=== PATIENT | female | born 1945 | race Two or more races ===

== ENCOUNTER 2025-06-05 07:43 | Day surgery (SDC) | payer OTHER, MEDICAID ==
[~2025-06-05] VITALS: Ht 165.1 cm; Wt 83.0 kg
[2025-06-05] VITALS (10 sets, daily range): BP systolic 123–172; BP diastolic 61–96; PULSE 58–81; RESP 14–18; O2SAT 96–99
[~2025-06-05 07:43] MED LIST: AMLO1TAB22 PO; ASPI-543 PO; ATOR40TA52 PO; AZEL0.054 EACHEYE; DIVA250T12 PO; HYDR-4069 PO; HYDR-4798 PO; ISOS10TA5 PO; LISI40TA16 PO; METO-158 PO; NITR0.4O2 SL; OMEP20TA PO; POM PO
[2025-06-05] MEDS: IODIXANOL 320MG/ML 100ML BTL IV ONE (09:10)
[2025-06-05] MEDS: VERAPAMIL 2.5MG/ML INJ 2ML VIAL IV ONE (09:11)
[2025-06-05] MEDS: HEPARIN SODIUM (PORCINE) 5000 UNITS/ML 1ML VIAL ONE (09:11)
[2025-06-05] MEDS: LIDOCAINE 2%HCL (LOCAL ANESTH.) INJ 20ML MDV ONE (09:12)
[2025-06-05] MEDS: SODIUM CHL 0.9% 0 ML ONE (09:12)
[2025-06-05] MEDS: ANGIOMAX 250 MG VIAL IV ONE (09:13)
[2025-06-05] MEDS: MIDAZOLAM HCL 2MG/2ML 2ml VIAL (1mg/ml) ONE (09:13)
[2025-06-05] MEDS: fentaNYL CITRATE 100 MCG/2 ML VL ONE (09:13)
--- NOTE | 2025-06-05 10:35 | DVHOP2 ---
Operative Report Procedures performed: Bilateral coronary angiography Moderate sedation Ultrasound-guided access (right femoral artery) Diagnosis: Nonobstructive coronary artery disease Patent right iliac artery stent Known aortic stenosis (TTE/DANIEL finding) Cardiac suggestion for management: Outpatient referral for management of aortic stenosis Findings: Left main: Left main was coming off the left sinus of Valsalva. There was no angiographic evidence of disease in left main. LAD: LAD was coming off the left main. First diagonal was small-sized vessel. Second diagonal was medium-sized vessel. There was a focal 40% lesion in mid LAD. Other portions of LAD and branches did not reveal any angiographic evidence of disease. LCX: LCX was coming off the left main. It was codominant and provided LPLB. OM1 was a small-caliber vessel. OM2 was a large caliber vessel. Left posterolateral branch was a medium-sized vessel. LCX throughout its course and branches did not reveal any angiographic evidence of disease. RCA: RCA was coming off the right sinus of Valsalva. It was a medium-sized vessel and also provided RPDA. It was co-dominant. RCA throughout its course and branches did not reveal any angiographic evidence of disease. It is of note that there was a patent stent (with no in-stent stenosis) in right iliac artery Presentation: Patient is a 79-year-old female who came to the office with dyspnea on exertion. 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 Nuclear stress test of January 2025 revealed some fixed defects. Ejection fraction was 60%. Echocardiogram of November 2024 revealed mild concentric left ventricular hypertrophy, ejection fraction more than 70%, [id number] aortic stenosis with peak/mean pressure gradient of 60/35 mm Hg across aortic valve and calculated aortic valve area of 1.0 cm. There was [id number]-[id number] MR, there was mild TR and right ventricular systolic pressure of 35 mm Hg. Transesophageal echocardiogram which was performed in March 2025 ([facility] [place] by Dr. Del Valle) revealed ejection fraction of 70%, [id number] MR, moderate aortic regurgitation, severe aortic stenosis and calculated aortic valve area of 0.6 cm. Patient was sent for cardiac catheterization on preparation for referral for aortic valve replacement. Procedure: After obtaining informed consent, the patient was brought to the labor/excavator. She was prepped and draped in sterile fashion. 1 mg of Versed and 25 mcg of fentanyl were used for moderate sedation. At 1st we attempted to get the right radial artery for access. We did use Seldinger technique and attempted to put a wire. The wire did not go up enough and we presumed that there is right radial artery problem and decided not to proceed to accessed the right radial artery. Using Seldinger technique, under fluoroscopy guidance and the use of a micropuncture, the right femoral artery was accessed. After angiographically proving a good access point, the micropuncture sheath was exchanged over a wire to a 6 [place] femoral sheath. We did recognize a patent stent in right inguinal artery. A 6 [place] JR4 diagnostic catheter was used to perform right coronary angiography. A 6 [place] JL4 diagnostic catheter was used to perform left coronary angiography. There was no indication for any transcatheter revascularization (on coronaries). There was no dissection/hematoma/perforation. Patient tolerated the procedure with no c omplication. Right femoral artery access site was managed by deploying an Angio-Seal device. Total bleeding was less than 15 mL. Fluoroscopy time: 3.6 minutes contrast: 42 mL of DUKE Bearden MD Jun 05, 2025 10:34
== END 2025-06-05 13:37 | disposition home or self-care (01) ==
LOC: CATH 07:43
PROVIDERS: ATTEND Internal Medicine Cardiovascular Disease
DX: R06.09 Other forms of dyspnea (principal); R94.39 Abnormal result of other cardiovascular function study; I25.10 Atherosclerotic heart disease of native coronary artery without angina pectoris; I35.0 Nonrheumatic aortic (valve) stenosis; I11.9 Hypertensive heart disease without heart failure; G89.4 Chronic pain syndrome; E78.5 Hyperlipidemia, unspecified; I35.2 Nonrheumatic aortic (valve) stenosis with insufficiency; Z86.73 Personal history of transient ischemic attack (TIA), and cerebral infarction without residual deficits; Z90.49 Acquired absence of other specified parts of digestive tract; Z79.899 Other long term (current) drug therapy; G40.909 Epilepsy, unspecified, not intractable, without status epilepticus; K21.9 Gastro-esophageal reflux disease without esophagitis; Z98.890 Other specified postprocedural states
CPT/HCPCS: 93454; C1760; C1894; J1644; J2250; J3010; J7030; Q9967; 99152